=== PATIENT | male | born 1955 | race Caucasian/White ===

== ENCOUNTER 2018-02-01 16:57 | Emergency (ER) | payer OTHER | END 2018-02-01 21:39 | disposition home or self-care (01) | LOC: FTE 21:39 | DX: S40.022A Contusion of left upper arm, initial encounter (principal); W22.8XXA Striking against or struck by other objects, initial encounter; Y92.810 Car as the place of occurrence of the external cause | CPT/HCPCS: 73030; 99283-25 ==